=== PATIENT | female | born 1960 | race Caucasian/White ===

== ENCOUNTER 2017-10-06 13:50 | Outpatient (CLI) | payer BC, OTHER | END 2017-10-06 13:51 | disposition home or self-care (01) | LOC: BICMAMMO 13:50 | PROVIDERS: ATTEND Family Medicine | DX: Z12.31 Encounter for screening mammogram for malignant neoplasm of breast (principal) | CPT/HCPCS: 77063; 77067 ==

== ENCOUNTER 2017-10-11 10:20 | Outpatient (CLI) | payer BC, OTHER ==
--- NOTE | 2017-10-11 13:45 | MRI ---
MRI OF LEFT ANKLE PERFORMED WITHOUT CONTRAST ENHANCEMENT: HISTORY: Ankle pain. History of previous left ankle fracture in 2004. COMPARISON: None. FINDINGS: Postoperative changes of the ankle joint are noted. There has been a fusion across the joint. There are screws which traverse the joint and there appears to be bony bridging between the tibia and talu s, particularly along the medial and posterior border of the joint. Artifact obscures some detail. The Achilles tendon is normal in appearance. There do appear to be some minimal edema changes associ ated with the soleus muscle suggesting some mild strain. There is a questionable tiny split tear of the peroneus brevis tendon. The peroneus longus tendon is normal in appearance. The posterior tibialis tendon, flexor digitorum longus, and flexor hallucis longus tendons appear int act. There is some scan artifact which obscures some detail, but the anterior extensor tendon group appear s unremarkable. 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 Plantar fascia is intact. Detail of the first metatarsal region is obscured. There appears to be so me type of surgical device present at this level. Uneven fat saturation related to artifacts related to surgery obscures some detail. Sinus tarsi rich on is felt to be fairly unremarkable. IMPRESSION: 1. Postop fusion changes of the ankle joint. 2. Mild soleus muscle strain. 3. Questionable tiny split tear of the proximal peroneus brevis tendon. 4. Arthritic changes of the subtalar joint. POS: [facility]
== END 2017-10-11 10:21 | disposition home or self-care (01) ==
LOC: TBSIIMAG 10:20
PROVIDERS: ATTEND Orthopaedic Surgery
DX: M25.572 Pain in left ankle and joints of left foot (principal); G89.29 Other chronic pain; Z98.1 Arthrodesis status; S86.812A Strain of other muscle(s) and tendon(s) at lower leg level, left leg, initial encounter; M19.072 Primary osteoarthritis, left ankle and foot

== ENCOUNTER 2020-05-08 08:09 | Outpatient (CLI) | payer OTHER, BC ==
--- NOTE | 2020-05-08 09:13 | MMO ---
Bilateral MAMMO Bilat Screen [facility]. CLINICAL HISTORY: Patient is 59 years old and is seen for screening. The patient has no family history of breast cancer. The patient has no personal history of cancer. The patient has a history of bilateral Implants in 2003. VIEWS: The views performed were: bilateral craniocaudal; bilateral craniocaudal with tomosynthesis; bilateral mediolateral oblique; bilateral mediolateral oblique with tomosynthesis; and bilateral Implant displaced with tomosynthesis. FILMS COMPARED: The present examination has been compared to prior imaging studies performed at [facility] on 10/06/2017, and at [facility] [place] on 10/23/2010, 04/14/2012 and 07/18/2014. This study has been interpreted with the assistance of computer-aided detection. MAMMOGRAM FINDINGS: The breasts are heterogeneously dense, which could obscure a lesion on mammography. Finding 1: Normal implants are present. Finding 2: There is an oval mass measuring 4 x 5 mm with circumscribed margins seen in the central region of the right breast. IMPRESSION: FINDING 1: IMPLANT FINDINGS IN BOTH BREASTS ARE BENIGN. FINDING 2: MASS IN THE RIGHT BREAST REQUIRES ADDITIONAL EVALUATION. ADDITIONAL PROJECTIONS (RIGHT CRANIOCAUDAL SPOT COMPRESSION; RIGHT MEDIOLATERAL OBLIQUE SPOT COMPRESSION; AND RIGHT MEDIOLATERAL) ARE RECOMMENDED. AN ULTRASOUND EXAM IS RECOMMENDED IF NEEDED. ADDITIONAL IMAGING. THE RESULTS OF THIS EXAM WERE SENT TO THE PATIENT. ACR BI-RADS Category 0 - Incomplete: Need additional imaging evaluation. [facility] will notify the patient of the need for additional imaging services. MAMMOGRAPHY NOTE: 1. A negative mammogram report should not delay a biopsy if a dominant of clinically suspicious mass is present. 2. Approximately 10% to 15% of breast cancers are not detected by mammography. 3. Adenosis and dense breasts may obscure an underlying neoplasm. Reported by: EDNA COLVIN MD Electonically Signed: [id number]
== END 2020-05-08 08:10 | disposition home or self-care (01) ==
LOC: BICMAMMO 08:09
PROVIDERS: ATTEND Physician Assistant
DX: Z12.31 Encounter for screening mammogram for malignant neoplasm of breast (principal); N63.10 Unspecified lump in the right breast, unspecified quadrant; Z98.82 Breast implant status
CPT/HCPCS: 77063; 77067

== ENCOUNTER 2020-05-27 08:52 | Outpatient (CLI) | payer OTHER, BC ==
--- NOTE | 2020-05-27 09:29 | MMO ---
Right Breast MAMMO Unilat Diag [facility]MIKE. CLINICAL HISTORY: Patient is 59 years old and is seen for additional evaluation requested from prior study. The patient has no family history of breast cancer. The patient has no personal history of cancer. The patient has a history of bilateral Implants in 2003. VIEWS: The views performed were: right craniocaudal spot compression with tomosynthesis; right mediolateral oblique spot compression with tomosynthesis; right mediolateral; and right mediolateral with tomosynthesis. FILMS COMPARED: The present examination has been compared to prior imaging studies performed at [facility] on 10/06/2017, 05/08/2020 and 05/27/2020, and at [facility] on 07/18/2014. This study has been interpreted with the assistance of computer-aided detection. MAMMOGRAM FINDINGS: There are scattered fibroglandular densities. There is a round mass measuring 5 millimeters with circumscribed margins seen in the outer region of the right breast. IMPRESSION: MASS IN THE RIGHT BREAST IS PROBABLY BENIGN. FOLLOW-UP IN 6 MONTHS IS RECOMMENDED. THE RESULTS OF THIS EXAM WERE SENT TO THE PATIENT. ACR BI-RADS Category 3 - Probably benign finding - short interval follow-up suggested. [facility] will notify the patient of the need for additional imaging services. MAMMOGRAPHY NOTE: 1. A negative mammogram report should not delay a biopsy if a dominant of clinically suspicious mass is present. 2. Approximately 10% to 15% of breast cancers are not detected by mammography. 3. Adenosis and dense breasts may obscure an underlying neoplasm. Reported by: ACE AVERY MD Electonically Signed: [id number]
--- NOTE | 2020-05-27 09:33 | ULT ---
US Breast Limited Rt: 05/27/2020 12:00 AM CLINICAL INDICATION: Focal asymmetry on mammography in the outer right breast. COMPARISON: Mammograms 05/27/2020, 05/08/2020, 10/06/2017 TECHNIQUE: Multiplanar grayscale and color Doppler images were obtained of the breast. FINDINGS: There is a hypoechoic well-circumscribed mass measuring 5 mm in greatest dimension. This may have a h yperechoic center and most likely represents a small intramammary lymph node. No suspicious mass is seen. No suspicious shadowing is seen. No cyst is identified. IMPRESSION: BI-RADS Category 3-probably benign findings. A six-month follow-up mammogram and ultrasou nd are recommended to ensure stability.
== END 2020-05-27 08:53 | disposition home or self-care (01) ==
LOC: BICMAMMO 08:52
PROVIDERS: ATTEND Physician Assistant
DX: N63.10 Unspecified lump in the right breast, unspecified quadrant (principal)
CPT/HCPCS: G0279